=== PATIENT | female | born 1970 | race American Indian/Alaskan Native ===

== ENCOUNTER 2022-05-20 13:30 | Emergency (ER) | payer OTHER, BC ==
[2022-05-20] MEDS ORDERED: ACETAMINOPHEN 325 MG TAB PO ONE (14:35)
[2022-05-20] MEDS ORDERED: MORPHINE 4 MG/1 ML INJ IV ONE (14:35)
[2022-05-20] MEDS ORDERED: ONDANSETRON 4 MG/2 ML INJ IV ONE (14:35)
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
[2022-05-20] MEDS ORDERED: fentaNYL 100 MCG/2 ML INJ IV ONE (15:34)
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
--- NOTE | 2022-05-20 17:59 | Electrocardiograph Report ---
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
[2022-05-20 18:11] VITALS: BP 162/92
== END 2022-05-20 19:00 | disposition home or self-care (01) ==
LOC: ED 13:30
DX: S13.4XXA Sprain of ligaments of cervical spine, initial encounter (principal); R07.89 Other chest pain; Z88.2 Allergy status to sulfonamides; Z79.899 Other long term (current) drug therapy; V89.2XXA Person injured in unspecified motor-vehicle accident, traffic, initial encounter; Y93.89 Activity, other specified; Y92.488 Other paved roadways as the place of occurrence of the external cause; Y99.8 Other external cause status
CPT/HCPCS: 71046; 72125; 93005; 96374; 96375; 99284; J2270; J2405; J3010